=== PATIENT | female | born 1985 | race Caucasian/White ===

== ENCOUNTER 2019-11-17 09:21 | Emergency (ER) | payer OTHER ==
[~2019-11-17] VITALS: Ht 160 cm; Wt 119.7 kg
[2019-11-17 09:25] VITALS: BP 143/89
[2019-11-17] MEDS ORDERED: NACL 0.9% 1,000 ML IV ONE (09:35)
[2019-11-17 10:15] LABS: BASOPHILS # (AUTO) 0.1 K/uL (0.00-0.22); BASOPHILS % (AUTO) 0.4 % (0.0-2.0); EOSINOPHILS % (AUTO) 0.3 % (0.0-4.0); HEMATOCRIT 43.9 % (36-48); HEMOGLOBIN 14.2 g/dL (12.0-16.0); LYMPHOCYTES # (AUTO) 0.6 K/uL (2.5-16.5); LYMPHOCYTES % (AUTO) 3.9 % (20.5-51.1); MEAN CORPUSCULAR HEMOGLOBIN 28 pg (27-31); MEAN CORPUSCULAR HGB CONC 32 g/dL (33-37); MEAN CORPUSCULAR VOLUME 85.4 fL (80-94); MONOCYTES # (AUTO) 0.4 K/uL (0.8-1.0); MONOCYTES % (AUTO) 3.2 % (1.7-9.3); NEUTROPHILS # (AUTO) 12.9 K/uL (1.8-7.7); NEUTROPHILS % (AUTO) 92.2 % (42.2-75.2); PLATELET COUNT (AUTO) 326 K/uL (140-450); RED BLOOD CELL COUNT(AUTO) 5.13 MIL/uL (4.20-5.40); RED CELL DISTRIBUTION WIDTH 16.4 % (11.6-13.7); WHITE BLOOD COUNT (AUTO) 14.1 K/uL (4.8-10.8)
[2019-11-17 10:17] LABS: APPEARANCE,URINE CLEAR (CLEAR); BILIRUBIN,URINE NEGATIVE (NEGATIVE); BLOOD, URINE NEGATIVE (NEGATIVE); COLOR,URINE YELLOW (YELLOW); LEUKOCYTE ESTERASE ,URINE NEGATIVE (NEGATIVE); NITRITE, URINE NEGATIVE (NEGATIVE); UGLUCOSE NEGATIVE (NEGATIVE)
[2019-11-17 10:40] LABS: ANION GAP 13.1 (8-16); CARBON DIOXIDE 27.1 mmol/L (21-32); CREATININE 0.7 mg/dL (0.6-1.3); POTASSIUM 4.2 mmol/L (3.5-5.1)
[2019-11-17 11:49] VITALS: BP 136/88
== END 2019-11-17 11:49 | disposition home or self-care (01) ==
LOC: MED 09:21
DX: K52.9 Noninfective gastroenteritis and colitis, unspecified (principal)
CPT/HCPCS: 36415; 80048; 81003; 84702; 85025; 96360; 99283

== ENCOUNTER 2021-10-28 15:42 | Emergency (ER) | payer OTHER ==
[~2021-10-28] VITALS: Ht 160 cm; Wt 127.0 kg
[2021-10-28 15:59] VITALS: BP 143/93
--- NOTE | 2021-10-28 16:05 | NUR ---
36 Y/O FEMALE AMBULATED FROM TRIAGE TO BED 7 WITH STEADY GAIT. C/O SUPRAPUBIC PAIN 10/10 DESCRIBES SHARP AND CRAMPING RADIATES TO LOWER BACK X3DAYS. +DYSURIA, DENIES HEMATURIA. DENIES FEVER/CHILLS. PT STATES +N/V. LMP 09/07/21 WITH POSSIBLE CHANCE OF BEING . HAS NOT TAKEN A TEST AT HOME. PT PROVIDED URINE CUP FOR URINE COLLECTION, PT AMBULATED TO RESTROOM AT THIS TIME. PMH: HX OF UTI'S/CYSTITIS/PYELONEPHRITIS ALLERGIES: CONTRAST DYE
--- NOTE | 2021-10-28 16:44 | NUR ---
WALKED URINE DOWN TO LAB
--- NOTE | 2021-10-28 16:44 | NUR ---
DR OCAMPO AT BEDSIDE FOR MSE
[2021-10-28] MEDS: PHENAZOPYRIDINE 100 MG TAB PO ONE (16:59)
[2021-10-28] MEDS: KETOROLAC 30 MG/ML VIAL IM ONE (17:00)
[2021-10-28 17:03] LABS: APPEARANCE,URINE CLEAR (CLEAR); BILIRUBIN,URINE NEGATIVE (NEGATIVE); BLOOD, URINE NEGATIVE (NEGATIVE); COLOR,URINE YELLOW (YELLOW); LEUKOCYTE ESTERASE ,URINE NEGATIVE (NEGATIVE); NITRITE, URINE NEGATIVE (NEGATIVE); UGLUCOSE NEGATIVE (NEGATIVE)
--- NOTE | 2021-10-28 17:30 | NUR ---
LAB AT BEDSIDE TO DRAW BLOODWORK
[2021-10-28 17:48] LABS: BASOPHILS # (AUTO) 0.1 K/uL (0.00-0.22); EOSINOPHILS # (AUTO) 0.1 K/uL (0-0.4); EOSINOPHILS % (AUTO) 0.7 % (0.0-4.0); HEMATOCRIT 34.6 % (36-48); HEMOGLOBIN 11.1 g/dL (12.0-16.0); LYMPHOCYTES % (AUTO) 21.9 % (20.5-51.1); MEAN CORPUSCULAR HEMOGLOBIN 24 pg (27-31); MEAN CORPUSCULAR HGB CONC 32 g/dL (33-37); MEAN CORPUSCULAR VOLUME 73.1 fL (80-94); MONOCYTES # (AUTO) 0.6 K/uL (0.8-1.0); NEUTROPHILS # (AUTO) 6.3 K/uL (1.8-7.7); NEUTROPHILS % (AUTO) 69.4 % (42.2-75.2); PLATELET COUNT (AUTO) 385 K/uL (140-450); RED BLOOD CELL COUNT(AUTO) 4.73 MIL/uL (4.20-5.40); RED CELL DISTRIBUTION WIDTH 16.9 % (11.6-13.7); WHITE BLOOD COUNT (AUTO) 9.1 K/uL (4.8-10.8)
[2021-10-28 18:02] LABS: ALBUMIN 3.4 g/dL (3.4-5.0); CARBON DIOXIDE 29.6 mmol/L (21-32); CREATININE 0.7 mg/dL (0.6-1.3); POTASSIUM 3.6 mmol/L (3.5-5.1); TOTAL BILIRUBIN 0.3 mg/dL (0.0-1.0)
[2021-10-28] MEDS ORDERED: NAPR-54 PO (18:53)
[2021-10-28] MEDS ORDERED: NITR100C7 PO (18:53)
[2021-10-28 19:05] VITALS: BP 147/83
--- NOTE | 2021-10-28 19:05 | NUR ---
Patient discharged with v/s stable. Written and verbal after care instructions given and explained. Patient alert, oriented and verbalized understanding of instructions. Ambulatory with steady gait. All questions addressed prior to discharge. ID band removed. Patient advised to follow up with PMD. Rx of NAPROSYN, MACROBID given. Patient educated on indication of medication including possible reaction and side effects. Opportunity to ask questions provided and answered.
== END 2021-10-28 19:05 | disposition home or self-care (01) ==
LOC: MED 15:42
DX: N83.201 Unspecified ovarian cyst, right side (principal); F41.9 Anxiety disorder, unspecified; Z79.899 Other long term (current) drug therapy
CPT/HCPCS: 36415; 74176; 80053; 81003; 81025; 83690; 85025; 96372; 99284; J1885

== ENCOUNTER 2023-04-07 18:03 | Emergency (ER) | payer OTHER ==
[~2023-04-07] VITALS: Ht 160 cm; Wt 126.6 kg
[~2023-04-07 18:03] MED LIST: NAPR-54 PO; NITR100C7 PO
[2023-04-07 18:27] VITALS: BP 160/86; PULSE 67; RESP 20; TEMP 98; O2SAT 99
--- NOTE | 2023-04-07 20:05 | NUR ---
pt ambulated to bed 05
[2023-04-07] MEDS ORDERED: NACL 0.9% 1,000 ML IV SCH (20:10)
[2023-04-07] MEDS ORDERED: ACETAMINOPHEN 325 MG TAB PO ONE (20:20)
--- NOTE | 2023-04-07 20:20 | NUR ---
37 Y/O F LATESHA SELF FROM HOME C/C VAGINAL BLEED INTERMITTENTLY XJULY 29 WITH BLOOD CLOTS. PT STATED SHE HAS A HISTORY OF CYST ON OVARIES AND WAS SEEN BY HER PRIMARY AND PRIMARY SENT HER TO ER. PT STATED SHE HAS PAIN WITH PREDSSURE IN ABDOMEN PELVIS AREA AND HEADACHES 10/. PT A&OX4, SKIN INTACT, AMBULATORY. PMH- CYST ON OVARIES ALLERGIES- CONTRAST
--- NOTE | 2023-04-07 20:23 | NUR ---
urine given to lab.
[2023-04-07 20:32] LABS: BASOPHILS # (AUTO) 0.1 K/uL (0.00-0.22); BASOPHILS % (AUTO) 0.8 % (0.0-2.0); EOSINOPHILS # (AUTO) 0.2 K/uL (0-0.4); EOSINOPHILS % (AUTO) 1.9 % (0.0-4.0); HEMATOCRIT 38.6 % (36-48); HEMOGLOBIN 12.8 g/dL (12.0-16.0); LYMPHOCYTES # (AUTO) 2.6 K/uL (2.5-16.5); LYMPHOCYTES % (AUTO) 32.1 % (20.5-51.1); MEAN CORPUSCULAR HEMOGLOBIN 27 pg (27-31); MEAN CORPUSCULAR HGB CONC 33 g/dL (33-37); MEAN CORPUSCULAR VOLUME 82.2 fL (80-94); MONOCYTES # (AUTO) 0.5 K/uL (0.8-1.0); MONOCYTES % (AUTO) 6.6 % (1.7-9.3); NEUTROPHILS # (AUTO) 4.8 K/uL (1.8-7.7); NEUTROPHILS % (AUTO) 58.6 % (42.2-75.2); PLATELET COUNT (AUTO) 385 K/uL (140-450); RED BLOOD CELL COUNT(AUTO) 4.69 MIL/uL (4.20-5.40); RED CELL DISTRIBUTION WIDTH 15.2 % (11.6-13.7); WHITE BLOOD COUNT (AUTO) 8.2 K/uL (4.8-10.8)
[2023-04-07 20:33] VITALS: BP 145/67; PULSE 80; RESP 13; O2SAT 99
[2023-04-07 20:52] LABS: ALBUMIN 3.5 g/dL (3.4-5.0); ANION GAP 14.8 (8-16); CARBON DIOXIDE 26.1 mmol/L (21-32); CREATININE 0.7 mg/dL (0.6-1.3); POTASSIUM 3.9 mmol/L (3.5-5.1); TOTAL BILIRUBIN 0.3 mg/dL (0.0-1.0)
[2023-04-07 21:02] LABS: PROTHROMBIN TIME 9.7 secs (10.8-13.4)
--- NOTE | 2023-04-07 21:15 | NUR ---
PT AMBULATORY TO RESTROOM WITHOUT ASSISTANCE
[2023-04-07] MEDS ORDERED: KETOROLAC 30 MG/ML VIAL IVP ONE (21:25)
[2023-04-07] MEDS ORDERED: FERR325E14 PO (22:22)
[2023-04-07] MEDS ORDERED: HYDR-5080 PO (22:22)
--- NOTE | 2023-04-07 22:35 | NUR ---
Patient discharged with v/s stable. Written and verbal after care instructions given and explained. Patient alert, oriented and verbalized understanding of instructions. Ambulatory with steady gait. All questions addressed prior to discharge. ID band removed. Patient advised to follow up with PMD. Rx of FERROUS SULFATE AND NORCO given.Opportunity to ask questions provided and answered.
== END 2023-04-07 22:35 | disposition home or self-care (01) ==
LOC: MED 18:03
DX: N93.9 Abnormal uterine and vaginal bleeding, unspecified (principal); D25.9 Leiomyoma of uterus, unspecified; Z79.899 Other long term (current) drug therapy
CPT/HCPCS: 36415; 76830; 80053; 81025; 83690; 85025; 85610; 85730; 86886; 86900; 86901; 96361; 96374; 99285; J1885; J7030; Q0092